=== PATIENT | female | born 1960 | race African-American/Black ===

== ENCOUNTER 2018-05-09 05:52 | Emergency (ER) | payer OTHER ==
[~2018-05-09] VITALS: Ht 157.5 cm; Wt 89.4 kg
--- NOTE | 2018-05-09 06:06 | ED SKIN/ALLERGY COMPLAINT ---
History of Present Illness General Chief Complaint: Allergy Symptoms Stated Complaint: "HIVES ALL OVER BODY,ITCHY X1HOUR AGO" Source: patient Exam Limitations: no limitations Vital Signs & Intake/Output Vital Signs & Intake/Output Vital Signs Date Time Temp Pulse Resp B/P B/P Pulse O2 O2 Flow FiO2 Mean Ox Delivery Rate 05/09 0559 98.1 105 20 141/82 100 Room Air Allergies Coded Allergies: STATINS (Intermediate, ABDOMINAL CRAMPING 05/09/18) lisinopril (Intermediate, ANGIODEMA 05/09/18) Uncoded Allergies: Allergy Other ANESTENIA Med Allergies NKDA Reconcile Medications Hydroxyzine HCl (hydrOXYzine HCl) 50 MG TABLET 1 TAB PO TID PRN ALLERGIC REACTION Prednisone 50 MG TABLET 1 TAB PO DAILY allergic reaction Triage Note: PT HERE WITH C/O ALL OVER BODY HIVES/RASH AND ITCHING. PT REPORTS NO NEW CHANGES IN DIET OR DETERGENTS. PT REPORTS THIS HAS HAPPENED IN THE PAST BUT NOT THIS BAD. 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 Triage Nurses Notes Reviewed? yes Onset: Abrupt Duration: hour(s): Timing: recent history Severity: moderate Location: torso, hands, extremities Possible Factors: no cause identified Modifying Factors: Worsens With: scratching. Associated Symptoms: ITCHING, URTICARIA ON TRUNK AND LEGS AND ARMS HPI: 57 YO WOMAN presents with urticaria on hands, trunk, and legs x 45 minutes. "It's really bad ... I itch all over." She does not identify any possible trigger. "We were recently in [place]... we came back and this happened this morning." She notes no suspicious ingestions or other exposures. She is otherwise well. Past History Travel History Traveled to [place] past 21 day No Medical History Any Pertinent Medical History? 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 No Review of Systems Review of Systems Constitutional: Reports: no symptoms. EENTM: Reports: no symptoms. Respiratory: Reports: no symptoms. Cardiovascular: Reports: no symptoms. GI: Reports: no symptoms. Genitourinary: Reports: no symptoms. Musculoskeletal: Reports: no symptoms. Skin: Reports: no symptoms. Neurological/Psychological: Reports: no symptoms. Hematologic/Endocrine: Reports: no symptoms. Immunologic/Allergic: Reports: no symptoms. All Other Systems: Reviewed and Negative Physical Exam Physical Exam General Appearance: well developed/nourished, mild distress Head: atraumatic, normal appearance Eyes: Bilateral: normal appearance, PERRL, EOMI. Ears, Nose, Throat: normal pharynx, normal ENT inspection, hearing grossly normal Neck: normal inspection, supple, full range of motion Respiratory: normal breath sounds, chest non-tender, no respiratory distress, quiet respiration, lungs clear Cardiovascular: regular rate/rhythm Gastrointestinal: normal bowel sounds, soft, non-tender, no organomegaly, pulsatile mass Back: normal inspection, normal range of motion Extremities: normal inspection, normal capillary refill Neurologic/Psych: no motor/sensory deficits, awake, alert, oriented x 3 Skin: intact, warm/dry, diffuse urticaria on arms, trunk, lower extremities. intensely pruritic, no blistering/tunneling. Progress Differential Diagnosis: allergic reaction, anaphylaxis Plan of Care: Current Medications Sig/Toni Start time Last Medication Dose Stop Time Status Admin Diphenhydramine HCl 50 MG ONCE ONE 05/09 615 UNVr (Benadryl) 05/09 616 Methylprednisolone 125 MG ONCE ONE 05/09 615 AC (Solu Medrol) 05/09 616 Departure Departure Disposition: HOME OR SELF CARE Condition: Stable Clinical Impression Primary Impression: Allergic reaction Referrals: Patient Has No Primary Care Dr (PCP/Family) Departure Forms: Customer Survey General Discharge Information Prescriptions: Current Visit Scripts Prednisone 1 TAB PO DAILY #5 TAB Hydroxyzine HCl (hydrOXYzine HCl) 1 TAB PO TID PRN ALLERGIC REACTION #30 TAB Comments 05/09/18, 7:08am... pt resting comfortably, doing well after solumedrol and benadryl.... she would like to be discharged.... pt given hydroxyzine and prednisone... 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
[2018-05-09] MEDS ORDERED: PREDNISONE50 M1 PO (06:12)
[2018-05-09] MEDS ORDERED: HYDROXYZINE HCL50 M2 PO (06:12)
[2018-05-09 07:34] VITALS: BP 143/84
== END 2018-05-09 07:36 ==
LOC: ERH 05:52
DX: T78.40XA Allergy, unspecified, initial encounter (principal)
CPT/HCPCS: 96374; 96375; J1200; J2930